=== PATIENT | male | born 1970 | race Caucasian/White ===

== ENCOUNTER 2018-11-10 20:18 | Emergency (ER) | payer SELFPAY ==
[2018-11-10 20:22] VITALS: BP 148/100
--- NOTE | 2018-11-10 20:29 | ER Report ---
History and Physical Time Seen By MD: 20:26 Hx. of Stated Complaint: PT STARTED HAVING LEFT SIDED MOUTH PAIN ON THURSDAY. PAIN GETTING WORSE, LEFT CHEEK SWOLLEN. STATES HE DOESN'T HAVE ANY TEETH PROBLEMS THAT HE KNOWS OF HPI/ROS CHIEF COMPLAINT: Dental pain HISTORY OF PRESENT ILLNESS: This is a 48-year-old male who presents to emergency department for dental pain. Patient states that couple of days ago he started developing some pain along his gums on the upper left, increased, more intense yesterday, pain improved today however still uncomfortable, there is swelling to the left upper cheek, they became concerned he said it come in for evaluation. They are over the road [employer], from [employer] and are on their way home however they didn't think they would be able to make it home without antibiotics. No difficulties breathing, no swelling of the tongue, no drainage from the ears or nose no rashes, no fevers, no chest pain or shortness of breath. REVIEW OF SYSTEMS: Respiratory: No cough, no dyspnea. Dental: As above. Cardiovascular: No chest pain, no palpitations. Gastrointestinal: No vomiting, no abdominal pain. Musculoskeletal: No back pain. Allergies: Coded Allergies: aspirin (Verified Allergy, Unknown, 11/10/18) MOM TOLD HIM HE WAS ALLERGIC Home Meds Active Scripts Penicillin V Potassium 500 Mg Tab (PENICILLIN V POTASSIUM 500 MG TAB) 500 Mg Tablet, 500 MG PO QID, #24 TAB 0 Refills Prov:AIDEN MOFFETT [employer]IOR [employer]BC 11/10/18 Past Medical/Surgical History The patient has no significant past medical or surgical history. Reviewed Nurses Notes: Yes Hx Substance Use Disorder: No Hx Alcohol Use: No Constitutional Vital Sign - Last 24 Hours 11/10/18 20:22 Temp 98.3 Pulse 107 Resp 12 B/P (MAP) 148/100 Pulse Ox 94 O2 Delivery Room Air Physical Exam General Appearance: The patient is alert, has no immediate need for airway protection and no current signs of toxicity. Eyes: Pupils equal and round no injection. Dental: Multiple teeth throughout the mouth noted to have fillings, no broken teeth or missing teeth identified. Gingivitis and mild erythema to the left outside gumline on the upper and lower jaw. No drainage, no muffled voice. Respiratory: Chest is non tender, lungs are clear to auscultation. Cardiac: regular rate and rhythm. Gastrointestinal: Abdomen is soft and non tender, no masses, bowel sounds normal. Musculoskeletal: Neck: Neck is supple and non tender. Extremities have full range of motion and are non tender. Skin: No rashes or lesions. DIFFERENTIAL DIAGNOSIS: After history and physical exam differential diagnosis was considered for dental abscess, Jeffry's angina, sinus infection. Medical Decision Making ED Course/Re-evaluation ED Course The patient was admitted to room. A history and physical were obtained. Differential diagnoses were considered. 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 He does have a follow-up appointment scheduled with his dentist when he returns to [place] on Thursday. Patient had no other quest ions or concerns at this time and discharged home. I did however tell the patient that should the swelling got much worse, had any difficulties swallowing or talking that he needs to follow up in the nearest emergency department. Decision to Disposition Date: Nov 10, 2018 Decision to Disposition Time: 20:44 Depart Departure Latest Vital Signs Vital Signs Date Time Temp Pulse Resp B/P (MAP) Pulse Ox O2 Delivery O2 Flow Rate FiO2 11/10/18 20:22 98.3 107 12 148/100 94 Room Air Impression: Primary Impression: Pain, dental Condition: Improved Disposition: HOME OR SELF-CARE New Scripts Penicillin V Potassium 500 Mg Tab (PENICILLIN V POTASSIUM 500 MG TAB) 500 Mg Tablet 500 MG PO QID, #24 TAB 0 Refills Prov: AIDEN MOFFETT S[employer]IOR [employer] DES[employer]-BC 11/10/18 Patient Instructions: Dental Abscess (ED), Dental Caries (ED) Additional Instructions: Please take the penicillin as prescribed, using given one dose in the emergency department and a take home pack which should be achieved through tomorrow. Please fill the prescription and take the rest of the antibiotics as prescribed. Please try saltwater gargles every 3-4 hours. Drink plenty of water. Get plenty of rest. Continue taking Tylenol as needed for pain. The swelling will remain roughly the same for the next couple of days, then you should see a reduction in the swelling. If you have any other concerns, increased shortness of breath, chest pain or difficulty swallowing please follow up in the nearest emergency department. Please keep your follow-up appointment with your dentist when you return home on Thursday. AIDEN MOFFETT SENIOR [employer]X DES[employer]ER[employer]BC Nov 10, 2018 20:29
[2018-11-10] MEDS ORDERED: PENICILLIN VK 250 MG PO ONE (20:45)
[2018-11-10] MEDS ORDERED: PENI-24 PO (20:46)
[2018-11-10] MEDS ORDERED: PENICILLIN VK 250 MG TAB PO SCH (21:00)
== END 2018-11-10 21:08 | disposition home or self-care (01) ==
LOC: ER 20:44
DX: K08.89 Other specified disorders of teeth and supporting structures (principal)
CPT/HCPCS: 99283